=== PATIENT | male | born 1940 | race Caucasian/White ===

== ENCOUNTER 2022-05-30 21:15 | Inpatient (IN) | payer MEDICARE, MEDICAID ==
[2022-05-31 01:09] VITALS: BMI 20.8
[2022-05-31] MEDS ORDERED: Dextrose 5% in Water 1,000 ML IV PRN (01:39)
[2022-05-31] MEDS ORDERED: hydrALAZINE 20 MG/ML VIAL SLOW IVP PRN (01:39)
[2022-05-31] MEDS ORDERED: Morphine 2 MG/ML VIAL SLOW IVP PRN (01:39)
[2022-05-31] MEDS ORDERED: Ondansetron PF 4 MG/2 ML Vial IVP PRN (01:39)
[2022-05-31] MEDS ORDERED: Dextrose 50% Abboject 50 ML SYRINGE SLOW IVP PRN (01:39)
[2022-05-31] MEDS ORDERED: Cyclobenzaprine 10 MG TAB PO PRN (01:43)
[2022-05-31] MEDS ORDERED: traMADol HCl 50 MG TAB PO PRN ×2 (01:43)
[2022-05-31 02:23] LABS: SARS-CoV-2 NAA Rapid Test Not Detected (NotDetected)
[2022-05-31] MEDS: Acetaminophen 500 MG TAB PO SCH ×3 (05:30→18:17)
[2022-05-31] MEDS ORDERED: CEFAZOLIN 2 GM in Sodium Chloride 0.9% 100 ML IVPB SCH (07:00)
[2022-05-31] MEDS: Polyethylene Glycol 3350 17 GM Packet PO SCH (09:54)
[2022-05-31] MEDS: Senokot S 8.6-50 MG TAB PO SCH ×2 (09:54→22:48)
[2022-05-31] MEDS: Famotidine 20 MG TAB PO SCH ×2 (10:20→22:48)
[2022-05-31] MEDS ORDERED: Sodium Chloride 0.9% 1,000 ML IV SCH (16:15)
[2022-05-31] MEDS ORDERED: fentaNYL Citrate/PF 100 MCG/2 ML SYRINGE ONE (16:36)
[2022-05-31] MEDS ORDERED: Norepinephrine 4 MG/4 ML VIAL ONE (16:37)
[2022-05-31] MEDS ORDERED: Lidocaine 1% MPF 2 ML VIAL ONE (17:14)
[2022-05-31] MEDS ORDERED: Neostigmine Methylsulfate 3 MG/3 ML SYRINGE ONE (17:14)
[2022-05-31] MEDS ORDERED: Ondansetron PF 4 MG/2 ML Vial ONE (17:14)
[2022-05-31] MEDS ORDERED: Dexamethasone 20 MG/5 ML VIAL ONE (17:14)
[2022-05-31] MEDS ORDERED: Glycopyrrolate 0.2 MG/ML 5 ML SYRINGE ONE (17:14)
[2022-05-31] MEDS ORDERED: ePHEDrine 50 MG/ML VIAL ONE (17:14)
[2022-05-31] MEDS ORDERED: Rocuronium Bromide 10 MG/ML (10ML VIAL) ONE (17:14)
[2022-05-31] MEDS ORDERED: Ondansetron HCl/PF 4 MG/2 ML Vial IVP PRN (18:35)
[2022-05-31] MEDS ORDERED: Promethazine HCl 25 MG/ML VIAL IVPB PRN (18:35)
[2022-05-31] MEDS ORDERED: Promethazine HCl 25 MG/ML VIAL IM PRN (18:35)
[2022-05-31] MEDS ORDERED: Fentanyl 100 MCG/2 ML VIAL ONE (18:47)
[2022-06-01] MEDS: CEFAZOLIN 2 GM in Sodium Chloride 0.9% 100 ML IVPB SCH ×2 (02:17→10:03)
[2022-06-01] MEDS: Acetaminophen 500 MG TAB PO SCH ×5 (02:19→22:55)
[2022-06-01 05:50] LABS: Anion Gap 10 mmol/L (10-20); BUN (Urea Nitrogen) 17 mg/dL (8.4-25.7); Calc. Creatinine Clearance 53 mL/min (70-130); Calcium 8.9 mg/dL (7.8-10.44); Carbon Dioxide 26 mmol/L (23-31); Chloride 105 mmol/L (98-107); Estimated GFR 73; Glucose 141 mg/dL (83-110); Magnesium 1.7 mg/dL (1.6-2.6); Phosphorus 2.5 mg/dL (2.3-4.7); Potassium 4.1 mmol/L (3.5-5.1); Sodium 137 mmol/L (136-145)
[2022-06-01 06:18] LABS: Band 13 % (5-11); Hemoglobin 12.7 g/dL (14.0-18.0); Lymphocytes 10 % (21-51); MDiff Complete? YES; Mean Corpuscular HGB CONC 32.4 g/dL (32.0-36.0); Mean Corpuscular Hemoglobin 32.6 pg (27.0-31.0); Mean Platelet Volume 10.5 fL (7.4-10.4); Monocytes 6 % (0-10); Neutrophil 71 % (42-75); Platelet Count 214 thou/uL (130-400); RBC Distribution Width 12.3 % (11.5-14.5); White Blood Cell (WBC) Count 21.7 thou/uL (4.8-10.8)
[2022-06-01] MEDS ORDERED: PHOS-NAK 1 PKT PACK PO SCH (08:00)
[2022-06-01] MEDS ORDERED: Magnesium 2 GM/50 ML(in water) 2 GM in Premix Bag 1 BAG IVPB SCH (08:00)
[2022-06-01] MEDS: Senokot S 8.6-50 MG TAB PO SCH ×2 (10:03→22:55)
[2022-06-01] MEDS: Polyethylene Glycol 3350 17 GM Packet PO SCH (10:04)
[2022-06-01] MEDS: Famotidine 20 MG TAB PO SCH ×2 (10:04→22:56)
[2022-06-01] MEDS: Aspirin 81 mg Enteric Coated Tablet PO SCH ×2 (10:04→22:56)
[2022-06-02 06:20] LABS: #Eosinphils 0.8 thou/uL (0.0-0.7); #Lymphocytes 5.8 thou/uL (1.20-3.40); #Monocytes 3.3 thou/uL (0.11-0.59); #Neutrophils 15.4 thou/uL (1.40-6.50); %Basophils 0.1 % (0.0-1.0); %Eosinophils 3.1 % (0.0-10.0); %Lymphocytes 22.8 % (21.0-51.0); %Monocytes 13.1 % (0.0-10.0); %Neutrophils 60.9 % (42.0-75.0); Hemoglobin 13.1 g/dL (14.0-18.0); Mean Corpuscular HGB CONC 32.6 g/dL (32.0-36.0); Mean Corpuscular Hemoglobin 32.6 pg (27.0-31.0); Mean Corpuscular Volume 99.9 fL (78.0-98.0); Platelet Count 240 thou/uL (130-400); RBC Distribution Width 12.5 % (11.5-14.5); Red Blood Cell (RBC) Count 4.02 mill/uL (4.70-6.10); White Blood Cell (WBC) Count 25.3 thou/uL (4.8-10.8)
[2022-06-02] MEDS: Acetaminophen 500 MG TAB PO SCH ×4 (06:22→23:55)
[2022-06-02 06:51] LABS: Anion Gap 20 mmol/L (10-20); BUN (Urea Nitrogen) 22 mg/dL (8.4-25.7); Calc. Creatinine Clearance 44 mL/min (70-130); Calcium 9.6 mg/dL (7.8-10.44); Carbon Dioxide 20 mmol/L (23-31); Chloride 104 mmol/L (98-107); Estimated GFR 59; Glucose 96 mg/dL (83-110); Magnesium 2.3 mg/dL (1.6-2.6); Phosphorus 2.5 mg/dL (2.3-4.7); Potassium 3.3 mmol/L (3.5-5.1); Sodium 141 mmol/L (136-145)
[2022-06-02] MEDS: Famotidine 20 MG TAB PO SCH ×2 (10:36→21:39)
[2022-06-02] MEDS: Aspirin 81 mg Enteric Coated Tablet PO SCH ×2 (10:36→21:39)
[2022-06-02] MEDS: Senokot S 8.6-50 MG TAB PO SCH ×2 (10:36→23:56)
[2022-06-02] MEDS: Polyethylene Glycol 3350 17 GM Packet PO SCH (10:37)
[2022-06-02] MEDS: BRIMONIDINE TARTRATE EA EYE SCH ×2 (10:37→21:39)
[2022-06-02] MEDS: TIMOLOL EA EYE SCH ×2 (10:37→21:39)
[2022-06-02] MEDS: BRINZOLAMIDE 1% EA EYE SCH ×2 (10:38→21:40)
[2022-06-03 06:05] LABS: #Basophils 0.1 thou/uL (0.0-0.2); #Eosinphils 1.6 thou/uL (0.0-0.7); #Lymphocytes 2.8 thou/uL (1.20-3.40); #Monocytes 1.6 thou/uL (0.11-0.59); #Neutrophils 8.7 thou/uL (1.40-6.50); %Basophils 0.4 % (0.0-1.0); %Lymphocytes 19.2 % (21.0-51.0); %Monocytes 10.9 % (0.0-10.0); %Neutrophils 58.6 % (42.0-75.0); Hemoglobin 11.8 g/dL (14.0-18.0); Mean Corpuscular HGB CONC 32.3 g/dL (32.0-36.0); Mean Corpuscular Hemoglobin 32.6 pg (27.0-31.0); Mean Platelet Volume 10.5 fL (7.4-10.4); Platelet Count 230 thou/uL (130-400); RBC Distribution Width 12.4 % (11.5-14.5); Red Blood Cell (RBC) Count 3.63 mill/uL (4.70-6.10); White Blood Cell (WBC) Count 14.8 thou/uL (4.8-10.8)
[2022-06-03] MEDS: Acetaminophen 500 MG TAB PO SCH ×3 (06:24→17:36)
[2022-06-03 06:31] LABS: Anion Gap 13 mmol/L (10-20); BUN (Urea Nitrogen) 27 mg/dL (8.4-25.7); Calc. Creatinine Clearance 57 mL/min (70-130); Calcium 8.8 mg/dL (7.8-10.44); Carbon Dioxide 25 mmol/L (23-31); Chloride 106 mmol/L (98-107); Estimated GFR 80; Glucose 90 mg/dL (83-110); Magnesium 2.1 mg/dL (1.6-2.6); Phosphorus 2.7 mg/dL (2.3-4.7); Potassium 3.4 mmol/L (3.5-5.1); Sodium 141 mmol/L (136-145)
[2022-06-03] MEDS: Aspirin 81 mg Enteric Coated Tablet PO SCH ×2 (10:07→20:11)
[2022-06-03] MEDS: Famotidine 20 MG TAB PO SCH ×2 (10:08→20:11)
[2022-06-03] MEDS: BRINZOLAMIDE 1% EA EYE SCH ×2 (10:10→20:11)
[2022-06-03] MEDS: BRIMONIDINE TARTRATE EA EYE SCH ×2 (10:11→20:10)
[2022-06-03] MEDS: TIMOLOL EA EYE SCH ×2 (10:11→20:10)
[2022-06-03] MEDS: Senokot S 8.6-50 MG TAB PO SCH ×2 (11:20→20:11)
[2022-06-03] MEDS: Polyethylene Glycol 3350 17 GM Packet PO SCH (11:20)
[2022-06-04] MEDS: Acetaminophen 500 MG TAB PO SCH ×4 (00:24→18:26)
[2022-06-04] MEDS: BRIMONIDINE TARTRATE EA EYE SCH ×2 (09:15→20:39)
[2022-06-04] MEDS: TIMOLOL EA EYE SCH ×2 (09:15→20:39)
[2022-06-04] MEDS: BRINZOLAMIDE 1% EA EYE SCH ×2 (09:17→20:39)
[2022-06-04] MEDS: Polyethylene Glycol 3350 17 GM Packet PO SCH (09:17)
[2022-06-04] MEDS: Aspirin 81 mg Enteric Coated Tablet PO SCH ×2 (09:17→20:38)
[2022-06-04] MEDS: Senokot S 8.6-50 MG TAB PO SCH ×2 (09:18→20:38)
[2022-06-04 09:36] LABS: Anion Gap 17 mmol/L (10-20); BUN (Urea Nitrogen) 23 mg/dL (8.4-25.7); Calc. Creatinine Clearance 65 mL/min (70-130); Calcium 8.4 mg/dL (7.8-10.44); Carbon Dioxide 21 mmol/L (23-31); Chloride 106 mmol/L (98-107); Estimated GFR 87; Glucose 86 mg/dL (83-110); Magnesium 1.9 mg/dL (1.6-2.6); Phosphorus 2.9 mg/dL (2.3-4.7); Potassium 3.8 mmol/L (3.5-5.1); Sodium 140 mmol/L (136-145)
[2022-06-04 09:49] LABS: #Basophils 0.1 thou/uL (0.0-0.2); #Eosinphils 1.7 thou/uL (0.0-0.7); #Monocytes 1.1 thou/uL (0.11-0.59); #Neutrophils 8.2 thou/uL (1.40-6.50); %Basophils 0.6 % (0.0-1.0); %Eosinophils 11.8 % (0.0-10.0); %Lymphocytes 21.5 % (21.0-51.0); %Monocytes 8.1 % (0.0-10.0); %Neutrophils 58.1 % (42.0-75.0); Hemoglobin 12.1 g/dL (14.0-18.0); Mean Corpuscular HGB CONC 31.7 g/dL (32.0-36.0); Mean Corpuscular Hemoglobin 31.9 pg (27.0-31.0); Mean Platelet Volume 10.8 fL (7.4-10.4); Platelet Count 295 thou/uL (130-400); RBC Distribution Width 12.3 % (11.5-14.5); White Blood Cell (WBC) Count 14.1 thou/uL (4.8-10.8)
[2022-06-05] MEDS: Acetaminophen 500 MG TAB PO SCH ×4 (02:07→17:41)
[2022-06-05] MEDS: Senokot S 8.6-50 MG TAB PO SCH ×2 (08:48→21:15)
[2022-06-05] MEDS: Aspirin 81 mg Enteric Coated Tablet PO SCH ×2 (08:48→21:15)
[2022-06-05] MEDS: Polyethylene Glycol 3350 17 GM Packet PO SCH (08:48)
[2022-06-05] MEDS: BRIMONIDINE TARTRATE EA EYE SCH ×2 (08:49→21:15)
[2022-06-05] MEDS: TIMOLOL EA EYE SCH ×2 (08:49→21:15)
[2022-06-05] MEDS ORDERED: Famotidine 20 MG TAB PO SCH (09:00)
[2022-06-05] MEDS: BRINZOLAMIDE 1% EA EYE SCH ×2 (09:36→21:15)
[2022-06-05] MEDS: Melatonin 3 MG TAB PO SCH (21:15)
[2022-06-06] MEDS: Acetaminophen 500 MG TAB PO SCH ×5 (01:06→23:42)
[2022-06-06] MEDS: BRIMONIDINE TARTRATE EA EYE SCH ×2 (09:03→21:32)
[2022-06-06] MEDS: TIMOLOL EA EYE SCH ×2 (09:03→21:32)
[2022-06-06] MEDS: BRINZOLAMIDE 1% EA EYE SCH ×2 (09:52→21:32)
[2022-06-06] MEDS: Aspirin 81 mg Enteric Coated Tablet PO SCH ×2 (09:53→21:31)
[2022-06-06] MEDS: Polyethylene Glycol 3350 17 GM Packet PO SCH (09:54)
[2022-06-06] MEDS: Senokot S 8.6-50 MG TAB PO SCH ×2 (09:54→21:33)
[2022-06-06] MEDS: Famotidine 20 MG TAB PO SCH ×2 (09:54→21:31)
[2022-06-06] MEDS: Melatonin 3 MG TAB PO SCH (21:32)
[2022-06-07] MEDS: Acetaminophen 500 MG TAB PO SCH ×2 (05:54→12:58)
[2022-06-07] MEDS: Famotidine 20 MG TAB PO SCH (10:00)
[2022-06-07] MEDS: Aspirin 81 mg Enteric Coated Tablet PO SCH (10:00)
[2022-06-07] MEDS: Senokot S 8.6-50 MG TAB PO SCH (10:01)
[2022-06-07] MEDS: TIMOLOL EA EYE SCH (10:02)
[2022-06-07] MEDS: BRIMONIDINE TARTRATE EA EYE SCH (10:02)
[2022-06-07] MEDS: BRINZOLAMIDE 1% EA EYE SCH (10:02)
[2022-06-07] MEDS: Polyethylene Glycol 3350 17 GM Packet PO SCH (10:03)
[2022-06-07 12:42] VITALS: BP 155/91; TEMP 97.8
== END 2022-06-07 14:00 | disposition swing bed (61) | DRG 521 ==
LOC: SJJU 05-31 00:59 → SURG A 06-01 19:42
PROVIDERS: ADMIT Surgery; ATTEND Surgery
PROC: 0SRB0J9 Replacement of Left Hip Joint with Synthetic Substitute, Cemented, Open Approach (ICD-10-PCS; principal; 2022-05-31)
DX: S72.002A Fracture of unspecified part of neck of left femur, initial encounter for closed fracture (principal); S72.111A Displaced fracture of greater trochanter of right femur, initial encounter for closed fracture; E44.0 Moderate protein-calorie malnutrition; D62 Acute posthemorrhagic anemia; Z20.822 Contact with and (suspected) exposure to COVID-19; W18.30XA Fall on same level, unspecified, initial encounter; I10 Essential (primary) hypertension; H40.9 Unspecified glaucoma; H54.7 Unspecified visual loss; E83.39 Other disorders of phosphorus metabolism; E87.6 Hypokalemia; Z90.49 Acquired absence of other specified parts of digestive tract; Z98.49 Cataract extraction status, unspecified eye; Z79.82 Long term (current) use of aspirin; Z79.899 Other long term (current) drug therapy
CPT/HCPCS: 36415; 72170; 80048; 83735; 84100; 85025; C1713; C1776; J0360; J0690; J1100; J2405; J3010; J3475; J3490; J7030; U0002; U0003; U0005

== ENCOUNTER 2022-07-20 17:10 | Inpatient (IN) | payer OTHER, MEDICARE, MEDICAID ==
[2022-07-20] MEDS ORDERED: hydrALAZINE 20 MG/ML VIAL SLOW IVP PRN (20:18)
[2022-07-20] MEDS ORDERED: Ondansetron PF 4 MG/2 ML Vial IVP PRN (20:18)
[2022-07-20] MEDS ORDERED: Morphine 2 MG/ML VIAL SLOW IVP PRN (20:18)
[2022-07-20] MEDS ORDERED: Ondansetron ODT 4 MG TAB PO PRN (20:18)
[2022-07-20] MEDS ORDERED: TETANUS, DIPHTHERIA TOX,ADULT (TDVAX) 0.5 ML VIAL IM ONE (20:18)
[2022-07-21] MEDS: Sodium Chloride 0.9% 1,000 ML IV SCH ×2 (00:09→10:33)
[2022-07-21] MEDS: Famotidine/PF 20 mg/2ml Vial SLOW IVP SCH ×3 (00:16→21:41)
[2022-07-21] MEDS: Acetaminophen 500 MG TAB PO SCH ×2 (00:18→02:45)
[2022-07-21 03:22] VITALS: BMI 21.7
[2022-07-21 05:56] LABS: #Basophils 0.1 thou/uL (0.0-0.2); #Eosinphils 0.5 thou/uL (0.0-0.7); #Lymphocytes 3.3 thou/uL (1.20-3.40); #Monocytes 0.9 thou/uL (0.11-0.59); %Basophils 1.3 % (0.0-1.0); %Eosinophils 5.2 % (0.0-10.0); %Lymphocytes 37.4 % (21.0-51.0); %Neutrophils 46.1 % (42.0-75.0); Hemoglobin 14.4 g/dL (14.0-18.0); Mean Corpuscular Hemoglobin 33.3 pg (27.0-31.0); Platelet Count 265 thou/uL (130-400); RBC Distribution Width 13.2 % (11.5-14.5); Red Blood Cell (RBC) Count 4.33 mill/uL (4.70-6.10); White Blood Cell (WBC) Count 8.7 thou/uL (4.8-10.8)
[2022-07-21 06:09] LABS: PTT 31.4 sec (22.9-36.1); Prothrombin Time 13.5 sec (12.0-14.7)
[2022-07-21 06:17] LABS: Phosphorus 3.4 mg/dL (2.3-4.7)
[2022-07-21 06:18] LABS: Anion Gap 14 mmol/L (10-20); BUN (Urea Nitrogen) 23 mg/dL (8.4-25.7); Calc. Creatinine Clearance 56 mL/min (70-130); Calcium 8.9 mg/dL (7.8-10.44); Carbon Dioxide 22 mmol/L (23-31); Chloride 106 mmol/L (98-107); Estimated GFR 87; Glucose 68 mg/dL (83-110); Magnesium 1.9 mg/dL (1.6-2.6); Potassium 3.3 mmol/L (3.5-5.1); Sodium 139 mmol/L (136-145)
[2022-07-21] MEDS ORDERED: fentaNYL Citrate/PF 100 MCG/2 ML SYRINGE ONE ×2 (07:31→08:52)
[2022-07-21] MEDS ORDERED: Potassium Chloride 20 MEQ TAB PO SCH (07:45)
[2022-07-21] MEDS ORDERED: Magnesium 2 GM/50 ML(in water) 2 GM in Premix Bag 1 BAG IVPB SCH (07:45)
[2022-07-21] MEDS ORDERED: Rocuronium Bromide 10 MG/ML (10ML VIAL) ONE (08:00)
[2022-07-21] MEDS ORDERED: ePHEDrine 50 MG/ML VIAL ONE (08:00)
[2022-07-21] MEDS ORDERED: Dexamethasone 20 MG/5 ML VIAL ONE (08:00)
[2022-07-21] MEDS ORDERED: Ondansetron PF 4 MG/2 ML Vial ONE (08:00)
[2022-07-21] MEDS ORDERED: PHENYLEPHRINE-NS 100 MCG/ML 10 ML SYRINGE ONE (08:00)
[2022-07-21] MEDS ORDERED: Sodium Chloride 0.9% 100 ML ONE (08:03)
[2022-07-21] MEDS ORDERED: CEFAZOLIN 2 GM VIAL ONE (08:03)
[2022-07-21] MEDS ORDERED: Ondansetron HCl/PF 4 MG/2 ML Vial IVP PRN (08:05)
[2022-07-21] MEDS ORDERED: Promethazine HCl 25 MG/ML VIAL IVPB PRN (08:05)
[2022-07-21] MEDS ORDERED: Promethazine HCl 25 MG/ML VIAL IM PRN (08:05)
[2022-07-21] MEDS ORDERED: EPINEPHrine 1 MG/ML AMP ONE (09:27)
[2022-07-21] MEDS ORDERED: Bupivacaine PF 0.5% 30 ML VIAL ONE ×2 (09:27→09:29)
[2022-07-21] MEDS ORDERED: SUGAMMADEX SODIUM 200 MG/2 ML VIAL ONE (09:39)
[2022-07-21] MEDS ORDERED: Fentanyl 100 MCG/2 ML VIAL ONE ×2 (10:08→10:53)
[2022-07-21] MEDS: Acetaminophen 325 MG TAB PO SCH ×3 (10:33→21:30)
[2022-07-21] MEDS: Acetaminophen/Codeine 30-300mg Tablet PO SCH ×3 (10:33→21:31)
[2022-07-21] MEDS ORDERED: HYDROmorphone 0.5 MG/0.5 ML SYRINGE ONE (10:36)
[2022-07-21] MEDS: CEFAZOLIN 2 GM in Sodium Chloride 0.9% 100 ML IVPB SCH (15:05)
[2022-07-22] MEDS: CEFAZOLIN 2 GM in Sodium Chloride 0.9% 100 ML IVPB SCH (00:19)
[2022-07-22] MEDS: Acetaminophen 325 MG TAB PO SCH ×4 (03:31→20:53)
[2022-07-22] MEDS: Acetaminophen/Codeine 30-300mg Tablet PO SCH ×4 (03:32→20:52)
[2022-07-22 06:48] LABS: #Lymphocytes 1.9 thou/uL (1.20-3.40); #Monocytes 1.9 thou/uL (0.11-0.59); #Neutrophils 12.4 thou/uL (1.40-6.50); %Basophils 0.1 % (0.0-1.0); %Eosinophils 0.1 % (0.0-10.0); %Lymphocytes 11.8 % (21.0-51.0); %Monocytes 11.9 % (0.0-10.0); %Neutrophils 76.1 % (42.0-75.0); Hemoglobin 12.1 g/dL (14.0-18.0); MDiff Complete? YES; Macrocytosis SLIGHT = 6-15 cells (100X) (0-5/hpf); Mean Corpuscular HGB CONC 30.6 g/dL (32.0-36.0); Mean Corpuscular Hemoglobin 32.6 pg (27.0-31.0); Mean Platelet Volume 10.6 fL (7.4-10.4); Platelet Count 229 thou/uL (130-400); Platelet Morphology Comment Appears Adequate; RBC Distribution Width 13.2 % (11.5-14.5); Red Blood Cell (RBC) Count 3.71 mill/uL (4.70-6.10); White Blood Cell (WBC) Count 16.3 thou/uL (4.8-10.8)
[2022-07-22 06:49] LABS: Anion Gap 14 mmol/L (10-20); BUN (Urea Nitrogen) 26 mg/dL (8.4-25.7); Calc. Creatinine Clearance 40 mL/min (70-130); Calcium 8.6 mg/dL (7.8-10.44); Carbon Dioxide 19 mmol/L (23-31); Chloride 109 mmol/L (98-107); Estimated GFR 62; Glucose 161 mg/dL (83-110); Magnesium 2.2 mg/dL (1.6-2.6); Phosphorus 3.1 mg/dL (2.3-4.7); Potassium 4.5 mmol/L (3.5-5.1); Sodium 137 mmol/L (136-145)
[2022-07-22] MEDS: Famotidine/PF 20 mg/2ml Vial SLOW IVP SCH ×2 (09:37→20:50)
[2022-07-22] MEDS: Aspirin 81 mg Enteric Coated Tablet PO SCH ×2 (09:37→20:51)
[2022-07-22] MEDS: Sodium Chloride 0.9% 1,000 ML IV SCH ×2 (09:39→20:51)
[2022-07-22 13:59] LABS: Bacteria/HPF None Seen HPF (None Seen); Bilirubin Negative (Negative); Blood, Urine Negative (Negative); Clarity Clear (Clear); Glucose, Urine (Dipstick) Normal (Negative); Ketone, Urine 10 mg/dL (Negative); Leukocyte Negative Leu/uL (Negative); Mucous/LPF Rare LPF (<2+); Nitrite Negative (Negative); Protein, Urine (Dipstick) 10 mg/dL (Neg-Trace); RBC/HPF 0-3 HPF (0-3); Specific Gravity, Urine 1.036 (1.002-1.036); Squamous Epithelial 0-3 HPF (0-3); Urobilinogen Normal mg/dL (Less than 2); WBC/HPF 0-3 HPF (0-3)
[2022-07-22 14:00] LABS: Urine Culture Reflex No No
[2022-07-22] MEDS: Brimonidine Tartrate 0.2% Ophth Soln 5 ml Bottle EA EYE SCH (20:53)
[2022-07-22] MEDS: Brinzolamide 1% Ophth SUSP 10 ml Bottle EA EYE SCH (20:55)
[2022-07-23] MEDS: Acetaminophen 325 MG TAB PO SCH ×4 (02:24→21:00)
[2022-07-23] MEDS: Acetaminophen/Codeine 30-300mg Tablet PO SCH ×4 (02:25→21:01)
[2022-07-23 06:01] LABS: #Eosinphils 0.1 thou/uL (0.0-0.7); #Lymphocytes 2.2 thou/uL (1.20-3.40); #Monocytes 1.3 thou/uL (0.11-0.59); #Neutrophils 7.5 thou/uL (1.40-6.50); %Basophils 0.1 % (0.0-1.0); %Eosinophils 0.7 % (0.0-10.0); %Lymphocytes 20.2 % (21.0-51.0); %Monocytes 11.4 % (0.0-10.0); %Neutrophils 67.6 % (42.0-75.0); Hemoglobin 10.3 g/dL (14.0-18.0); Mean Corpuscular HGB CONC 31.4 g/dL (32.0-36.0); Mean Corpuscular Hemoglobin 32.5 pg (27.0-31.0); Mean Platelet Volume 10.8 fL (7.4-10.4); Platelet Count 194 thou/uL (130-400); RBC Distribution Width 13.2 % (11.5-14.5); Red Blood Cell (RBC) Count 3.17 mill/uL (4.70-6.10); White Blood Cell (WBC) Count 11.1 thou/uL (4.8-10.8)
[2022-07-23 06:36] LABS: Anion Gap 9 mmol/L (10-20); BUN (Urea Nitrogen) 22 mg/dL (8.4-25.7); Calc. Creatinine Clearance 53 mL/min (70-130); Calcium 8.3 mg/dL (7.8-10.44); Carbon Dioxide 25 mmol/L (23-31); Chloride 110 mmol/L (98-107); Estimated GFR 85; Glucose 111 mg/dL (83-110); Magnesium 2.1 mg/dL (1.6-2.6); Phosphorus 2.4 mg/dL (2.3-4.7); Sodium 140 mmol/L (136-145)
[2022-07-23] MEDS: Brimonidine Tartrate 0.2% Ophth Soln 5 ml Bottle EA EYE SCH ×2 (08:25→21:02)
[2022-07-23] MEDS: Brinzolamide 1% Ophth SUSP 10 ml Bottle EA EYE SCH ×2 (08:25→21:02)
[2022-07-23] MEDS: Aspirin 81 mg Enteric Coated Tablet PO SCH ×2 (08:25→21:02)
[2022-07-23] MEDS: Famotidine/PF 20 mg/2ml Vial SLOW IVP SCH (08:25)
[2022-07-24] MEDS: Acetaminophen 325 MG TAB PO SCH ×4 (02:15→20:01)
[2022-07-24] MEDS: Acetaminophen/Codeine 30-300mg Tablet PO SCH ×4 (02:15→20:02)
[2022-07-24] MEDS: Brimonidine Tartrate 0.2% Ophth Soln 5 ml Bottle EA EYE SCH ×2 (08:42→20:02)
[2022-07-24] MEDS: Aspirin 81 mg Enteric Coated Tablet PO SCH ×2 (08:42→20:01)
[2022-07-24] MEDS: Brinzolamide 1% Ophth SUSP 10 ml Bottle EA EYE SCH ×2 (08:42→20:02)
[2022-07-24] MEDS ORDERED: FLU VACC QS2022-23(65YR UP)/PF 240 MCG/0.7 ML SYRINGE IM ONE (09:00)
[2022-07-25] MEDS: Acetaminophen/Codeine 30-300mg Tablet PO SCH ×3 (02:03→13:25)
[2022-07-25] MEDS: Acetaminophen 325 MG TAB PO SCH ×3 (02:03→13:25)
[2022-07-25] MEDS: Brimonidine Tartrate 0.2% Ophth Soln 5 ml Bottle EA EYE SCH (08:21)
[2022-07-25] MEDS: Brinzolamide 1% Ophth SUSP 10 ml Bottle EA EYE SCH (08:21)
[2022-07-25] MEDS: Aspirin 81 mg Enteric Coated Tablet PO SCH (08:21)
[2022-07-25 12:28] VITALS: BP 120/77; TEMP 97.5
== END 2022-07-25 16:15 | disposition swing bed (61) | DRG 481 ==
LOC: 2NO 17:10 → SURG B 19:46
PROVIDERS: ADMIT Surgery; ATTEND Surgery
PROC: 0QS704Z Reposition Left Upper Femur with Internal Fixation Device, Open Approach (ICD-10-PCS; principal; 2022-07-21)
DX: S72.302A Unspecified fracture of shaft of left femur, initial encounter for closed fracture (principal); M97.02XA Periprosthetic fracture around internal prosthetic left hip joint, initial encounter; V58.4XXA Person boarding or alighting a pick-up truck or van injured in noncollision transport accident, initial encounter; I10 Essential (primary) hypertension; H40.9 Unspecified glaucoma; Z79.82 Long term (current) use of aspirin; Z20.822 Contact with and (suspected) exposure to COVID-19; H54.7 Unspecified visual loss
CPT/HCPCS: 36415; 76000; 80048; 81001; 82533; 83735; 83880; 84100; 85025; 85610; 85730; 86850; 86900; 86901; C1713; C1776; J0171; J0690; J1100; J1170; J2405; J3010; J3475; J3490; J7050; S0020; S0028

== ENCOUNTER 2023-11-04 14:12 | Inpatient (IN) | payer MEDICARE, MEDICAID ==
[2023-11-04] MEDS ORDERED: Glucagon 1 MG/ML KIT IM PRN (15:23)
[2023-11-04] MEDS ORDERED: Ondansetron PF 4 MG/2 ML Vial IVP PRN (15:23)
[2023-11-04] MEDS ORDERED: Ondansetron ODT 4 MG TAB PO PRN (15:23)
[2023-11-04] MEDS ORDERED: HYDROcodone/Acetaminophen 5/325 mg Tablet PO PRN (15:23)
[2023-11-04] MEDS ORDERED: Morphine 2 MG/ML VIAL SLOW IVP PRN (15:23)
[2023-11-04] MEDS ORDERED: Dextrose 5% in Water 1,000 ML IV PRN (15:23)
[2023-11-04] MEDS ORDERED: TETANUS, DIPHTHERIA TOX,ADULT (TDVAX) 0.5 ML VIAL IM ONE (15:23)
[2023-11-04] MEDS ORDERED: Dextrose 50% Abboject 50 ML SYRINGE SLOW IVP PRN (15:23)
[2023-11-04 16:32] VITALS: BMI 24.0
[2023-11-04] MEDS: Sodium Chloride 0.9% 1,000 ML IV SCH ×2 (16:50→23:31)
[2023-11-04] MEDS: Acetaminophen 325 MG TAB PO PRN (23:30)
[2023-11-05 05:02] LABS: Hematocrit 38.4 % (42.0-52.0); Hemoglobin 12.4 g/dL (14.0-18.0); Manual Diff?? YES; Mean Corpuscular HGB CONC 32.3 g/dL (32.0-36.0); Mean Corpuscular Hemoglobin 31.8 pg (27.0-31.0); Mean Corpuscular Volume 98.5 fl (78.0-98.0); Mean Platelet Volume 12.8 fL (7.4-10.4); Platelet Count 254 10x3/uL (130-400); RBC Distribution Width 14.3 % (11.5-14.5); White Blood Cell (WBC) Count 11.3 10x3/uL (4.8-10.8)
[2023-11-05 05:06] LABS: Delete Auto Diff?? YES
[2023-11-05 05:25] LABS: ALT (SGPT) 17 U/L (8-55); AST (SGOT) 34 U/L (5-34); Albumin 3.3 g/dL (3.4-4.8); Alkaline Phosphatase 76 U/L (40-110); Anion Gap 10 mmol/L (10-20); BUN (Urea Nitrogen) 25 mg/dL (8.4-25.7); Bilirubin, Total 0.9 mg/dL (0.2-1.2); Calc. Creatinine Clearance 59 mL/min (70-130); Calcium 8.4 mg/dL (7.8-10.44); Carbon Dioxide 22 mmol/L (23-31); Chloride 111 mmol/L (98-107); Estimated GFR 71; Globulin 2.7 g/dL (2.4-3.5); Glucose 92 mg/dL (83-110); Potassium 3.4 mmol/L (3.5-5.1); Sodium 140 mmol/L (136-145)
[2023-11-05 05:59] LABS: CellaVision Operator ID lab.abc; Eosinophils 3 % (0-10); Large Platelets 12.9 % (0-5); Lymphocytes 22 % (21-51); Monocytes 10 % (0-10); Myelocyte 2 % (0-0); Neutrophil 61 % (42-75); Platelet Adequacy Comment Platelets Normal; Polychromasia SLIGHT = 2-3 cells HPF (0-2); RBC Morphology Within Normal Limits; Reactive Lymphocytes 2 % (0-10); Smudge Cells 8.6 %; Total Cell Count 116
[2023-11-05] MEDS ORDERED: Sodium Chloride 0.9% 1,000 ML IV SCH (06:45)
[2023-11-05] MEDS ORDERED: Potassium Chloride 20 MEQ TAB PO SCH (07:30)
[2023-11-05] MEDS: Enoxaparin 40 MG (0.4 mL) SYRINGE SC SCH (08:11)
[2023-11-05] MEDS: Acetaminophen 325 MG TAB PO PRN (16:50)
[2023-11-06 01:12] LABS: Hematocrit 44.9 % (42.0-52.0); Hemoglobin 14.7 g/dL (14.0-18.0); Manual Diff?? YES; Mean Corpuscular HGB CONC 32.7 g/dL (32.0-36.0); Mean Corpuscular Hemoglobin 31.7 pg (27.0-31.0); Mean Corpuscular Volume 96.8 fl (78.0-98.0); Mean Platelet Volume 12.5 fL (7.4-10.4); Platelet Count 279 10x3/uL (130-400); RBC Distribution Width 14.2 % (11.5-14.5); Red Blood Cell (RBC) Count 4.64 mill/uL (4.70-6.10); White Blood Cell (WBC) Count 14.7 10x3/uL (4.8-10.8)
[2023-11-06 01:15] LABS: Delete Auto Diff?? YES
[2023-11-06 01:32] LABS: CellaVision Operator ID LAB.KB; Lymphocytes 11 % (21-51); Monocytes 4 % (0-10); Neutrophil 81 % (42-75); Platelet Adequacy Comment Platelets Normal; Polychromasia SLIGHT = 2-3 cells HPF (0-2); Reactive Lymphocytes 3 % (0-10); Total Cell Count 100
[2023-11-06] MEDS: Pantoprazole 80 MG, Admixture Fee 1 EACH in Sodium Chloride 0.9% 100 ML IVPB SCH ×2 (01:52→12:04)
[2023-11-06 04:56] LABS: Hematocrit 41.3 % (42.0-52.0); Hemoglobin 13.5 g/dL (14.0-18.0); Manual Diff?? YES; Mean Corpuscular HGB CONC 32.7 g/dL (32.0-36.0); Mean Corpuscular Hemoglobin 31.9 pg (27.0-31.0); Mean Corpuscular Volume 97.6 fl (78.0-98.0); Mean Platelet Volume 12.4 fL (7.4-10.4); Platelet Count 270 10x3/uL (130-400); RBC Distribution Width 14.2 % (11.5-14.5); Red Blood Cell (RBC) Count 4.23 mill/uL (4.70-6.10); White Blood Cell (WBC) Count 15.3 10x3/uL (4.8-10.8)
[2023-11-06 05:12] LABS: Delete Auto Diff?? YES
[2023-11-06 05:19] LABS: Anion Gap 13 mmol/L (10-20); BUN (Urea Nitrogen) 19 mg/dL (8.4-25.7); CK (CPK) 498 U/L (30-200); Calc. Creatinine Clearance 65 mL/min (70-130); Calcium 8.8 mg/dL (7.8-10.44); Carbon Dioxide 22 mmol/L (23-31); Chloride 110 mmol/L (98-107); Estimated GFR 80; Glucose 89 mg/dL (83-110); Potassium 4.1 mmol/L (3.5-5.1); Sodium 141 mmol/L (136-145)
[2023-11-06 05:47] LABS: Band 5 % (5-11); CellaVision Operator ID LAB.GE; Eosinophils 1 % (0-10); Large Platelets 7.8 % (0-5); Lymphocytes 11 % (21-51); Monocytes 4 % (0-10); Neutrophil 78 % (42-75); Platelet Adequacy Comment Platelets Normal; Polychromasia SLIGHT = 2-3 cells HPF (0-2); Smudge Cells 6.9 %; Total Cell Count 102
[2023-11-06] MEDS ORDERED: Lactated Ringer's 1,000 ML IV SCH (08:30)
[2023-11-06] MEDS: Lactated Ringer's 1,000 ML IV SCH ×2 (11:20→20:34)
[2023-11-06] MEDS: Enoxaparin 40 MG (0.4 mL) SYRINGE SC SCH (11:21)
[2023-11-06] MEDS: Melatonin 3 MG TAB PO SCH (20:33)
[2023-11-06] MEDS: Acetaminophen/Codeine 30-300mg Tablet PO PRN (22:44)
[2023-11-07 00:24] LABS: Bacteria/HPF None Seen HPF (None Seen); Bilirubin Negative (Negative); Blood, Urine Negative (Negative); CAUTI Indications for Culture Alt mental st,lethar; Clarity Clear (Clear); Glucose, Urine (Dipstick) Normal (Negative); Ketone, Urine 100 mg/dL (Negative); Leukocyte Negative Leu/uL (Negative); Nitrite Negative (Negative); Protein, Urine (Dipstick) 10 mg/dL (Neg-Trace); RBC/HPF 0-3 HPF (0-3); Specific Gravity, Urine 1.024 (1.002-1.036); Squamous Epithelial 0-3 HPF (0-3); WBC/HPF 0-3 HPF (0-3); pH, Urine 5.5 (5.0-9.0)
[2023-11-07 00:28] LABS: Urine Culture Reflex No No
[2023-11-07] MEDS: Pantoprazole 80 MG, Admixture Fee 1 EACH in Sodium Chloride 0.9% 100 ML IVPB SCH (00:57)
[2023-11-07 05:26] LABS: #Basophils 0.1 thou/uL (0.0-0.2); #Eosinphils 0.4 thou/uL (0.0-0.7); #Monocytes 1.4 thou/uL (0.11-0.59); #Neutrophils 7.5 thou/uL (1.40-6.50); %Basophils 0.4 % (0.0-1.0); %Eosinophils 3.1 % (0.0-10.0); %Lymphocytes 22.2 % (21.0-51.0); %Monocytes 11.5 % (0.0-10.0); %Neutrophils 62.3 % (42.0-75.0); Hematocrit 33.5 % (42.0-52.0); Hemoglobin 10.8 g/dL (14.0-18.0); Mean Corpuscular HGB CONC 32.2 g/dL (32.0-36.0); Mean Corpuscular Volume 99.1 fl (78.0-98.0); Platelet Count 223 10x3/uL (130-400); RBC Distribution Width 14.1 % (11.5-14.5); Red Blood Cell (RBC) Count 3.38 mill/uL (4.70-6.10); White Blood Cell (WBC) Count 12.1 10x3/uL (4.8-10.8)
[2023-11-07] MEDS: Lactated Ringer's 1,000 ML IV SCH (05:58)
[2023-11-07 05:59] LABS: Anion Gap 14 mmol/L (10-20); BUN (Urea Nitrogen) 20 mg/dL (8.4-25.7); CK (CPK) 344 U/L (30-200); Calc. Creatinine Clearance 71 mL/min (70-130); Calcium 8.3 mg/dL (7.8-10.44); Carbon Dioxide 23 mmol/L (23-31); Chloride 108 mmol/L (98-107); Estimated GFR 85; Glucose 77 mg/dL (83-110); Potassium 3.7 mmol/L (3.5-5.1); Sodium 141 mmol/L (136-145)
[2023-11-07] MEDS: Amlodipine 5 MG TAB PO SCH (08:27)
[2023-11-07] MEDS: Pantoprazole 40 MG VIAL IVP SCH ×2 (08:29→20:06)
[2023-11-07] MEDS: Melatonin 3 MG TAB PO SCH (20:06)
[2023-11-08] MEDS: Acetaminophen/Codeine 30-300mg Tablet PO PRN ×2 (00:13→21:46)
[2023-11-08 05:03] LABS: #Basophils 0.1 thou/uL (0.0-0.2); #Eosinphils 0.6 thou/uL (0.0-0.7); #Neutrophils 7.2 thou/uL (1.40-6.50); %Basophils 0.4 % (0.0-1.0); %Eosinophils 5.1 % (0.0-10.0); %Lymphocytes 19.6 % (21.0-51.0); %Monocytes 15.9 % (0.0-10.0); %Neutrophils 58.1 % (42.0-75.0); Hematocrit 37.6 % (42.0-52.0); Hemoglobin 12.3 g/dL (14.0-18.0); Mean Corpuscular HGB CONC 32.7 g/dL (32.0-36.0); Mean Corpuscular Hemoglobin 32.3 pg (27.0-31.0); Mean Corpuscular Volume 98.7 fl (78.0-98.0); Mean Platelet Volume 12.8 fL (7.4-10.4); Platelet Count 219 10x3/uL (130-400); RBC Distribution Width 13.9 % (11.5-14.5); Red Blood Cell (RBC) Count 3.81 mill/uL (4.70-6.10); White Blood Cell (WBC) Count 12.4 10x3/uL (4.8-10.8)
[2023-11-08 05:34] LABS: Anion Gap 10 mmol/L (10-20); BUN (Urea Nitrogen) 13 mg/dL (8.4-25.7); Calc. Creatinine Clearance 73 mL/min (70-130); Calcium 8.4 mg/dL (7.8-10.44); Carbon Dioxide 25 mmol/L (23-31); Chloride 106 mmol/L (98-107); Estimated GFR 86; Glucose 120 mg/dL (83-110); Potassium 3.3 mmol/L (3.5-5.1); Sodium 138 mmol/L (136-145)
[2023-11-08] MEDS: Pantoprazole 40 MG VIAL IVP SCH (09:01)
[2023-11-08] MEDS: Amlodipine 5 MG TAB PO SCH (09:01)
[2023-11-08] MEDS: Melatonin 3 MG TAB PO SCH (19:52)
[2023-11-08] MEDS ORDERED: Enoxaparin 40 MG (0.4 mL) SYRINGE SC SCH (21:00)
[2023-11-09] MEDS: Acetaminophen/Codeine 30-300mg Tablet PO PRN (01:14)
[2023-11-09] MEDS: Amlodipine 5 MG TAB PO SCH (09:11)
[2023-11-09 10:56] VITALS: BP 130/79; TEMP 97.6
== END 2023-11-09 12:45 | disposition home or self-care (01) | DRG 543 ==
LOC: SURG B 14:12
PROVIDERS: ADMIT Student in an Organized Health Care Education/Training Program; ATTEND Student in an Organized Health Care Education/Training Program
DX: M84.451A Pathological fracture, right femur, initial encounter for fracture (principal); K56.7 Ileus, unspecified; M62.82 Rhabdomyolysis; K92.0 Hematemesis; I10 Essential (primary) hypertension; E78.5 Hyperlipidemia, unspecified; E87.6 Hypokalemia; G20.A1 Parkinson's disease without dyskinesia, without mention of fluctuations; H40.9 Unspecified glaucoma; Z98.890 Other specified postprocedural states; Z99.3 Dependence on wheelchair; Z98.41 Cataract extraction status, right eye; Z98.42 Cataract extraction status, left eye; Z90.49 Acquired absence of other specified parts of digestive tract; Z79.899 Other long term (current) drug therapy; Z79.82 Long term (current) use of aspirin
CPT/HCPCS: 36415; 71045; 74018; 74022; 80048; 80053; 81001; 82550; 85025; 87040; C9113; J1650; J3490; J7050; J7120

== ENCOUNTER 2025-05-01 22:08 | Inpatient (IN) | payer MEDICARE, MEDICAID ==
[2025-05-02 01:08] VITALS: BMI 24.5
[2025-05-02] MEDS: cefTRIAXone\\ROCEPHIN 1 GM in Sodium Chloride 0.9% 100 ML IVPB SCH (02:36)
[2025-05-02 04:47] LABS: Troponin I 0.067 ng/mL (< 0.028)
[2025-05-02 04:48] LABS: ALT (SGPT) 8 U/L (Less than 45); AST (SGOT) 22 U/L (11-34); Albumin 3.4 g/dL (3.1-4.5); Alkaline Phosphatase 84 U/L (40-110); Anion Gap 11 mmol/L (10-20); BUN (Urea Nitrogen) 18 mg/dL (8.4-25.7); Bilirubin, Total 0.8 mg/dL (0.3-1.2); CK (CPK) 148 U/L (30-200); Calc. Creatinine Clearance 47 mL/min (70-130); Calcium 8.3 mg/dL (7.8-10.44); Carbon Dioxide 22 mmol/L (23-31); Chloride 111 mmol/L (98-107); Globulin 3.2 g/dL (2.4-3.5); Glucose 90 mg/dL (83-110); Magnesium 1.8 mg/dL (1.6-2.6); Potassium 3.6 mmol/L (3.5-5.1); Sodium 140 mmol/L (136-145)
[2025-05-02 04:51] LABS: Hematocrit 35.9 % (42.0-52.0); Hemoglobin 11.6 g/dL (14.0-18.0); Mean Corpuscular Hemoglobin 32.3 pg (27.0-31.0); Mean Corpuscular Volume 100.0 fL (78.0-98.0); Platelet Count 165 10x3/uL (130-400); Red Blood Cell (RBC) Count 3.59 mill/uL (4.70-6.10); White Blood Cell (WBC) Count 20.37 10x3/uL (4.8-10.8)
[2025-05-02 05:57] LABS: Anisocytosis MODERATE=16-30 cells HPF (0-5); Burr Cells SLIGHT = 2-5 cells HPF (0-1); Macrocytosis MODERATE=16-30 cells HPF (0-5); Platelet Adequacy Comment Platelets Normal; Smudge Cells 14.0 %
[2025-05-02] MEDS: Enoxaparin 40 MG (0.4 mL) SYRINGE SC SCH (09:09)
[2025-05-02] MEDS ORDERED: EMOLLIENT TOP PRN (15:05)
[2025-05-02] MEDS ORDERED: Ondansetron PF 4 MG/2 ML Vial IVP PRN (15:05)
[2025-05-02] MEDS ORDERED: Acetaminophen 325 MG TAB PO PRN (15:05)
[2025-05-02] MEDS: Aspirin 81 mg Enteric Coated Tablet PO SCH (22:00)
[2025-05-02] MEDS: Brimonidine Tartrate 0.2% Ophth Soln 5 ml Bottle EA EYE SCH (22:01)
[2025-05-02] MEDS: Dorzolamide HCl 2% Ophth (10 mL) Bottle EA EYE SCH (22:01)
[2025-05-03 05:17] LABS: Hematocrit 37.5 % (42.0-52.0); Hemoglobin 12.1 g/dL (14.0-18.0); Mean Corpuscular Hemoglobin 32.1 pg (27.0-31.0); Mean Corpuscular Volume 99.5 fL (78.0-98.0); Platelet Count 165 10x3/uL (130-400); Red Blood Cell (RBC) Count 3.77 mill/uL (4.70-6.10); White Blood Cell (WBC) Count 10.49 10x3/uL (4.8-10.8)
[2025-05-03 05:30] LABS: Anion Gap 12 mmol/L (10-20); BUN (Urea Nitrogen) 19 mg/dL (8.4-25.7); Calc. Creatinine Clearance 46 mL/min (70-130); Calcium 8.5 mg/dL (7.8-10.44); Carbon Dioxide 23 mmol/L (23-31); Chloride 109 mmol/L (98-107); Glucose 87 mg/dL (83-110); Potassium 3.7 mmol/L (3.5-5.1); Sodium 140 mmol/L (136-145)
[2025-05-03 05:31] LABS: CRP,High Sensitivity (Inhouse) 7.26 mg/dL (< or = 0.5)
[2025-05-03 06:14] LABS: Nucleated RBC (Manual Ct) 1 % (0); Platelet Adequacy Comment Platelets Normal; RBC Morphology Within Normal Limits; Smudge Cells 13.0 %
[2025-05-03] MEDS: Pantoprazole 40 MG DR.TAB PO SCH (09:32)
[2025-05-03] MEDS: Furosemide 20 MG TAB PO SCH (09:32)
[2025-05-03] MEDS: Ferrous Sulfate 325 MG TAB PO SCH (09:32)
[2025-05-03 14:41] VITALS: BMI 24.5
[2025-05-03] MEDS: Metoprolol Succinate XL 25 MG ER.TAB PO SCH (16:10)
[2025-05-03] MEDS: Magnesium 2 GM/50 ML(in water) 2 GM in Premix 1 BAG IVPB SCH (16:10)
[2025-05-04 05:05] LABS: Anion Gap 14 mmol/L (10-20); BUN (Urea Nitrogen) 19 mg/dL (8.4-25.7); Calc. Creatinine Clearance 43 mL/min (70-130); Calcium 8.6 mg/dL (7.8-10.44); Carbon Dioxide 23 mmol/L (23-31); Chloride 106 mmol/L (98-107); Glucose 94 mg/dL (83-110); Magnesium 2.3 mg/dL (1.6-2.6); Potassium 3.7 mmol/L (3.5-5.1); Sodium 139 mmol/L (136-145)
[2025-05-04 05:28] LABS: Mean Corpuscular Volume 99.0 fL (78.0-98.0)
[2025-05-04 05:29] LABS: #Basophils 0.07 10x3/uL (0.0-0.2); #Eosinophils 0.54 10x3/uL (0.0-0.7); #Monocytes 0.99 10x3/uL (0.11-0.59); #Neutrophils 3.64 10x3/uL (1.40-6.50); %Basophils 0.9 % (0.0-1.0); %Eosinophils 7.2 % (0.0-10.0); %Lymphocytes 29.6 % (21.0-51.0); %Monocytes 13.2 % (0.0-10.0); %Neutrophils 48.6 % (42.0-75.0); Hematocrit 39.6 % (42.0-52.0); Hemoglobin 12.8 g/dL (14.0-18.0); Mean Corpuscular Hemoglobin 32.0 pg (27.0-31.0); Platelet Count 181 10x3/uL (130-400); Red Blood Cell (RBC) Count 4.00 mill/uL (4.70-6.10); White Blood Cell (WBC) Count 7.50 10x3/uL (4.8-10.8)
[2025-05-04] MEDS: Metoprolol Succinate XL 25 MG ER.TAB PO SCH (08:14)
[2025-05-04 15:16] VITALS: BP 141/87; TEMP 97.8
== END 2025-05-04 18:25 | disposition home health service (06) | DRG 872 ==
LOC: 2NO 05-02 00:22
PROVIDERS: ADMIT Internal Medicine; ATTEND Family Medicine
DX: A41.9 Sepsis, unspecified organism (principal); N17.9 Acute kidney failure, unspecified; I10 Essential (primary) hypertension; H40.9 Unspecified glaucoma; Z90.49 Acquired absence of other specified parts of digestive tract; Z79.82 Long term (current) use of aspirin; Z79.899 Other long term (current) drug therapy; E86.0 Dehydration; E86.9 Volume depletion, unspecified; Z99.3 Dependence on wheelchair
CPT/HCPCS: 36415; 80048; 80053; 82533; 82550; 83605; 83735; 84439; 84484; 85025; 86141; 87040; 93005; 93010; 93306; J0696; J1650; J3475; J7030

== ENCOUNTER 2025-06-16 19:15 | Inpatient (IN) | payer MEDICARE, MEDICAID ==
[~2025-06-16 19:15] MED LIST: Iopamidol-370 76% 500 ML MDV (1 ML CHARGE) ONE
[2025-06-16] MEDS ORDERED: Cefepime 2 GM VIAL ONE (19:45)
[2025-06-16 20:22] LABS: Hematocrit 42.0 % (42.0-52.0); Hemoglobin 13.1 g/dL (14.0-18.0); Mean Corpuscular Hemoglobin 31.5 pg (27.0-31.0); Mean Corpuscular Volume 101.0 fL (78.0-98.0); Platelet Count 195 10x3/uL (130-400); Red Blood Cell (RBC) Count 4.16 mill/uL (4.70-6.10); White Blood Cell (WBC) Count 11.88 10x3/uL (4.8-10.8)
[2025-06-16 20:36] LABS: ALT (SGPT) Less than 7 U/L (Less than 45); AST (SGOT) 20 U/L (11-34); Albumin 3.7 g/dL (3.1-4.5); Alkaline Phosphatase 100 U/L (40-110); Anion Gap 17 mmol/L (10-20); BUN (Urea Nitrogen) 24 mg/dL (8.4-25.7); Bilirubin, Total 1.3 mg/dL (0.3-1.2); Calc. Creatinine Clearance 0 mL/min (70-130); Calcium 9.1 mg/dL (7.8-10.44); Carbon Dioxide 22 mmol/L (23-31); Chloride 109 mmol/L (98-107); Globulin 3.1 g/dL (2.4-3.5); Glucose 95 mg/dL (83-110); Lipase 15 U/L (8-78); Potassium 3.9 mmol/L (3.5-5.1); Sodium 144 mmol/L (136-145)
[2025-06-16 20:45] LABS: Burr Cells MODERATE= 6-15 cells HPF (0-1); Macrocytosis SLIGHT = 6-15 cells HPF (0-5); Platelet Adequacy Comment Platelets Normal; Polychromasia SLIGHT = 2-3 cells HPF (0-2); Smudge Cells 16.3 %
[2025-06-16] MEDS ORDERED: VANCOMYCIN 2 GRAM/400 ML BAG ONE (20:52)
[2025-06-16] MEDS: VANCOMYCIN 2 GRAM/400 ML Premix BAG IVPB SCH (21:00)
[2025-06-16] MEDS ORDERED: hydrALAZINE 20 MG/ML VIAL SLOW IVP PRN (22:07)
[2025-06-16 23:38] VITALS: BMI 24.8
[2025-06-17 06:24] LABS: Hematocrit 39.5 % (42.0-52.0); Hemoglobin 12.3 g/dL (14.0-18.0); Mean Corpuscular Hemoglobin 31.3 pg (27.0-31.0); Mean Corpuscular Volume 100.5 fL (78.0-98.0); Platelet Count 188 10x3/uL (130-400); Red Blood Cell (RBC) Count 3.93 mill/uL (4.70-6.10); White Blood Cell (WBC) Count 13.02 10x3/uL (4.8-10.8)
[2025-06-17 06:25] LABS: Anion Gap 11 mmol/L (10-20); BUN (Urea Nitrogen) 18 mg/dL (8.4-25.7); Calc. Creatinine Clearance 63 mL/min (70-130); Calcium 8.5 mg/dL (7.8-10.44); Carbon Dioxide 21 mmol/L (23-31); Chloride 114 mmol/L (98-107); Glucose 87 mg/dL (83-110); Potassium 3.7 mmol/L (3.5-5.1); Sodium 142 mmol/L (136-145)
[2025-06-17 06:39] LABS: Free T4 (Free Thyroxine) 0.97 ng/dL (0.70-1.48)
[2025-06-17 07:02] LABS: Burr Cells SLIGHT = 2-5 cells HPF (0-1); Macrocytosis SLIGHT = 6-15 cells HPF (0-5); Platelet Adequacy Comment Platelets Normal; Poikilocytosis SLIGHT = 6-15 cells HPF (0-5); Polychromasia SLIGHT = 2-3 cells HPF (0-2); Smudge Cells 8.7 %
[2025-06-17] MEDS: Dorzolamide HCl 2% Ophth (10 mL) Bottle EA EYE SCH (09:22)
[2025-06-17] MEDS: Furosemide 20 MG TAB PO SCH (09:22)
[2025-06-17] MEDS: Aspirin 81 mg Enteric Coated Tablet PO SCH (09:22)
[2025-06-17] MEDS: Brimonidine Tartrate 0.2% Ophth Soln 5 ml Bottle EA EYE SCH (09:22)
[2025-06-17] MEDS: diphenhydrAMINE 25 MG CAP PO PRN (14:50)
[2025-06-18 05:54] LABS: Hematocrit 42.3 % (42.0-52.0); Hemoglobin 13.5 g/dL (14.0-18.0); Mean Corpuscular Hemoglobin 31.4 pg (27.0-31.0); Mean Corpuscular Volume 98.4 fL (78.0-98.0); Platelet Count 202 10x3/uL (130-400); Red Blood Cell (RBC) Count 4.30 mill/uL (4.70-6.10); White Blood Cell (WBC) Count 9.49 10x3/uL (4.8-10.8)
[2025-06-18 06:02] LABS: Anion Gap 11 mmol/L (10-20); BUN (Urea Nitrogen) 14 mg/dL (8.4-25.7); CRP, High Sensitivity at Bryan 0.30 mg/dL (< or = 0.5); Calc. Creatinine Clearance 65 mL/min (70-130); Calcium 8.9 mg/dL (7.8-10.44); Carbon Dioxide 24 mmol/L (23-31); Chloride 110 mmol/L (98-107); Glucose 94 mg/dL (83-110); Potassium 3.7 mmol/L (3.5-5.1); Sodium 141 mmol/L (136-145)
[2025-06-18 06:37] LABS: Platelet Adequacy Comment Platelets Normal; RBC Morphology Within Normal Limits; Smudge Cells 5.0 %
[2025-06-19 05:33] LABS: Hematocrit 43.0 % (42.0-52.0); Hemoglobin 13.7 g/dL (14.0-18.0); Mean Corpuscular Hemoglobin 31.7 pg (27.0-31.0); Mean Corpuscular Volume 99.5 fL (78.0-98.0); Platelet Count 196 10x3/uL (130-400); Red Blood Cell (RBC) Count 4.32 mill/uL (4.70-6.10); White Blood Cell (WBC) Count 10.54 10x3/uL (4.8-10.8)
[2025-06-19 05:57] LABS: Nucleated RBC (Manual Ct) 1 % (0); Platelet Adequacy Comment Platelets Normal; Polychromasia SLIGHT = 2-3 cells HPF (0-2)
[2025-06-19 05:58] LABS: Anion Gap 14 mmol/L (10-20); BUN (Urea Nitrogen) 19 mg/dL (8.4-25.7); Calc. Creatinine Clearance 51 mL/min (70-130); Calcium 8.8 mg/dL (7.8-10.44); Carbon Dioxide 22 mmol/L (23-31); Chloride 110 mmol/L (98-107); Glucose 93 mg/dL (83-110); Potassium 3.5 mmol/L (3.5-5.1); Sodium 142 mmol/L (136-145)
[2025-06-19] MEDS: cefTRIAXone\\ROCEPHIN 1 GM in Sodium Chloride 0.9% 100 ML IVPB SCH (17:42)
[2025-06-19] MEDS: Ondansetron PF 4 MG/2 ML Vial IVP PRN (21:18)
[2025-06-20] MEDS: Mag-Al Plus 1200/1200/120 MG (30 mL) UDCUP PO PRN (02:45)
[2025-06-20 05:55] LABS: Hematocrit 48.7 % (42.0-52.0); Hemoglobin 15.8 g/dL (14.0-18.0); Mean Corpuscular Hemoglobin 31.7 pg (27.0-31.0); Mean Corpuscular Volume 97.8 fL (78.0-98.0); Platelet Count 232 10x3/uL (130-400); Red Blood Cell (RBC) Count 4.98 mill/uL (4.70-6.10); White Blood Cell (WBC) Count 13.91 10x3/uL (4.8-10.8)
[2025-06-20 06:03] LABS: Anion Gap 17 mmol/L (10-20); BUN (Urea Nitrogen) 23 mg/dL (8.4-25.7); Calc. Creatinine Clearance 49 mL/min (70-130); Calcium 9.1 mg/dL (7.8-10.44); Carbon Dioxide 22 mmol/L (23-31); Chloride 106 mmol/L (98-107); Glucose 107 mg/dL (83-110); Potassium 3.9 mmol/L (3.5-5.1); Sodium 141 mmol/L (136-145)
[2025-06-20 06:37] LABS: Platelet Adequacy Comment Platelets Normal; RBC Morphology Within Normal Limits; Smudge Cells 24.2 %
[2025-06-20] MEDS: Pantoprazole 40 MG VIAL IVP SCH ×2 (10:53→21:29)
[2025-06-20] MEDS: D5 1/2 NS w/10 mEq KCl 1,000 ML/1,000 ML BAG IV SCH (14:17)
[2025-06-21 06:20] LABS: Hematocrit 44.6 % (42.0-52.0); Hemoglobin 13.7 g/dL (14.0-18.0); Mean Corpuscular Hemoglobin 31.4 pg (27.0-31.0); Mean Corpuscular Volume 102.1 fL (78.0-98.0); Platelet Count 177 10x3/uL (130-400); Red Blood Cell (RBC) Count 4.37 mill/uL (4.70-6.10); White Blood Cell (WBC) Count 12.60 10x3/uL (4.8-10.8)
[2025-06-21 06:39] LABS: Macrocytosis SLIGHT = 6-15 cells HPF (0-5); Platelet Adequacy Comment Platelets Normal; Polychromasia SLIGHT = 2-3 cells HPF (0-2)
[2025-06-21 07:43] LABS: Anion Gap 16 mmol/L (10-20); BUN (Urea Nitrogen) 27 mg/dL (8.4-25.7); Calc. Creatinine Clearance 50 mL/min (70-130); Calcium 8.6 mg/dL (7.8-10.44); Carbon Dioxide 23 mmol/L (23-31); Chloride 105 mmol/L (98-107); Glucose 102 mg/dL (83-110); Potassium 4.1 mmol/L (3.5-5.1); Sodium 140 mmol/L (136-145)
[2025-06-21] MEDS: Vancomycin 1.5 GM / NS 500ML VIAL-2-BAG IVPB SCH (08:54)
[2025-06-21] MEDS ORDERED: Vancomycin 1 GM in Premix 1 BAG IVPB SCH (09:00)
[2025-06-22] MEDS: Acetaminophen 325 MG TAB PO PRN (00:58)
[2025-06-22 06:19] LABS: Hematocrit 39.4 % (42.0-52.0); Hemoglobin 12.3 g/dL (14.0-18.0); Mean Corpuscular Hemoglobin 31.5 pg (27.0-31.0); Mean Corpuscular Volume 101.0 fL (78.0-98.0); Platelet Count 170 10x3/uL (130-400); Red Blood Cell (RBC) Count 3.90 mill/uL (4.70-6.10); White Blood Cell (WBC) Count 10.87 10x3/uL (4.8-10.8)
[2025-06-22 06:21] LABS: Vancomycin, Random 11.0 ug/mL (See Comment)
[2025-06-22 06:23] LABS: Anion Gap 13 mmol/L (10-20); BUN (Urea Nitrogen) 17 mg/dL (8.4-25.7); Calc. Creatinine Clearance 56 mL/min (70-130); Calcium 8.2 mg/dL (7.8-10.44); Carbon Dioxide 22 mmol/L (23-31); Chloride 108 mmol/L (98-107); Glucose 108 mg/dL (83-110); Potassium 4.3 mmol/L (3.5-5.1); Sodium 139 mmol/L (136-145)
[2025-06-22 06:56] LABS: Macrocytosis SLIGHT = 6-15 cells HPF (0-5); Platelet Adequacy Comment Platelets Normal; Smudge Cells 18.0 %
[2025-06-22] MEDS: Vancomycin 1.25 GM / NS 250 ML VIAL-2-BAG IVPB SCH (08:47)
[2025-06-23 06:21] LABS: Calc. Creatinine Clearance 50.0 mL/min (70-130)
[2025-06-23] MEDS: Vancomycin 1 GM Premix Bag IVPB SCH (08:25)
[2025-06-23 11:30] VITALS: BMI 24.8
[2025-06-24 05:50] LABS: Anion Gap 15 mmol/L (10-20); BUN (Urea Nitrogen) 15 mg/dL (8.4-25.7); CRP, High Sensitivity at Bryan 1.14 mg/dL (< or = 0.5); Calc. Creatinine Clearance 50 mL/min (70-130); Calcium 8.8 mg/dL (7.8-10.44); Carbon Dioxide 24 mmol/L (23-31); Chloride 104 mmol/L (98-107); Glucose 98 mg/dL (83-110); Potassium 3.9 mmol/L (3.5-5.1); Sodium 139 mmol/L (136-145); Vancomycin, Random 19.0 ug/mL (See Comment)
[2025-06-24 05:59] LABS: Hematocrit 41.5 % (42.0-52.0); Hemoglobin 12.9 g/dL (14.0-18.0); Mean Corpuscular Hemoglobin 30.5 pg (27.0-31.0); Mean Corpuscular Volume 98.1 fL (78.0-98.0); Platelet Count 224 10x3/uL (130-400); Red Blood Cell (RBC) Count 4.23 mill/uL (4.70-6.10); White Blood Cell (WBC) Count 13.41 10x3/uL (4.8-10.8)
[2025-06-24 06:17] LABS: Platelet Adequacy Comment Platelets Normal; RBC Morphology Within Normal Limits; Smudge Cells 17.8 %
[2025-06-25 06:38] LABS: Hematocrit 37.2 % (42.0-52.0); Hemoglobin 12.1 g/dL (14.0-18.0); Mean Corpuscular Hemoglobin 31.4 pg (27.0-31.0); Mean Corpuscular Volume 96.6 fL (78.0-98.0); Platelet Count 224 10x3/uL (130-400); Red Blood Cell (RBC) Count 3.85 mill/uL (4.70-6.10); White Blood Cell (WBC) Count 13.72 10x3/uL (4.8-10.8)
[2025-06-25 06:46] LABS: Anion Gap 17 mmol/L (10-20); BUN (Urea Nitrogen) 17 mg/dL (8.4-25.7); Calc. Creatinine Clearance 44 mL/min (70-130); Calcium 8.8 mg/dL (7.8-10.44); Carbon Dioxide 24 mmol/L (23-31); Chloride 104 mmol/L (98-107); Glucose 87 mg/dL (83-110); Potassium 3.8 mmol/L (3.5-5.1); Sodium 141 mmol/L (136-145)
[2025-06-25 06:47] LABS: CRP, High Sensitivity at Bryan 1.44 mg/dL (< or = 0.5)
[2025-06-25 08:02] LABS: Anisocytosis MODERATE=16-30 cells HPF (0-5); Burr Cells SLIGHT = 2-5 cells HPF (0-1); Macrocytosis SLIGHT = 6-15 cells HPF (0-5); Platelet Adequacy Comment Platelets Normal; Polychromasia SLIGHT = 2-3 cells HPF (0-2); Smudge Cells 17.8 %
[2025-06-25] MEDS: Vancomycin HCl 750 MG in Sodium Chloride 0.9% 250 ML 250 ML IVPB SCH (08:23)
[2025-06-25] MEDS: Cephalexin 250 MG CAP PO SCH (17:45)
[2025-06-26 07:34] LABS: Hematocrit 41.2 % (42.0-52.0); Hemoglobin 12.5 g/dL (14.0-18.0); Mean Corpuscular Hemoglobin 31.8 pg (27.0-31.0); Mean Corpuscular Volume 104.8 fL (78.0-98.0); Platelet Count 124 10x3/uL (130-400); Red Blood Cell (RBC) Count 3.93 mill/uL (4.70-6.10); White Blood Cell (WBC) Count 13.36 10x3/uL (4.8-10.8)
[2025-06-26 08:06] LABS: Anisocytosis SLIGHT = 6-15 cells HPF (0-5); Burr Cells MARKED = >16 cells HPF (0-1); Macrocytosis SLIGHT = 6-15 cells HPF (0-5); Ovalocytes SLIGHT = 2-5 cells HPF (0-1); Platelet Adequacy Comment Platelets Normal; Poikilocytosis MARKED = >30 cells HPF (0-5); Polychromasia SLIGHT = 2-3 cells HPF (0-2)
[2025-06-27 06:12] LABS: Hematocrit 37.2 % (42.0-52.0); Hemoglobin 11.6 g/dL (14.0-18.0); Mean Corpuscular Hemoglobin 31.5 pg (27.0-31.0); Mean Corpuscular Volume 101.1 fL (78.0-98.0); Platelet Count 221 10x3/uL (130-400); Red Blood Cell (RBC) Count 3.68 mill/uL (4.70-6.10); White Blood Cell (WBC) Count 12.90 10x3/uL (4.8-10.8)
[2025-06-27 06:28] LABS: Anion Gap 13 mmol/L (10-20); BUN (Urea Nitrogen) 23 mg/dL (8.4-25.7); Calc. Creatinine Clearance 48 mL/min (70-130); Calcium 8.8 mg/dL (7.8-10.44); Carbon Dioxide 26 mmol/L (23-31); Chloride 106 mmol/L (98-107); Glucose 119 mg/dL (83-110); Potassium 3.5 mmol/L (3.5-5.1); Sodium 141 mmol/L (136-145)
[2025-06-27 06:59] LABS: Macrocytosis SLIGHT = 6-15 cells HPF (0-5); Platelet Adequacy Comment Platelets Normal; Poikilocytosis SLIGHT = 6-15 cells HPF (0-5); Polychromasia SLIGHT = 2-3 cells HPF (0-2); Smudge Cells 7.9 %
[2025-06-27] MEDS: Pantoprazole 40 MG DR.TAB PO SCH (09:47)
[2025-06-28 06:10] LABS: Hematocrit 39.8 % (42.0-52.0); Hemoglobin 12.2 g/dL (14.0-18.0); Mean Corpuscular Hemoglobin 31.6 pg (27.0-31.0); Mean Corpuscular Volume 103.1 fL (78.0-98.0); Platelet Count 165 10x3/uL (130-400); Red Blood Cell (RBC) Count 3.86 mill/uL (4.70-6.10); White Blood Cell (WBC) Count 11.57 10x3/uL (4.8-10.8)
[2025-06-28 06:30] LABS: Anion Gap 15 mmol/L (10-20); BUN (Urea Nitrogen) 22 mg/dL (8.4-25.7); Calc. Creatinine Clearance 52 mL/min (70-130); Calcium 8.9 mg/dL (7.8-10.44); Carbon Dioxide 24 mmol/L (23-31); Chloride 107 mmol/L (98-107); Glucose 98 mg/dL (83-110); Potassium 3.8 mmol/L (3.5-5.1); Sodium 142 mmol/L (136-145)
[2025-06-28 07:17] LABS: Platelet Adequacy Comment Platelets Normal; RBC Morphology Within Normal Limits; Smudge Cells 11.7 %
[2025-06-28 14:20] VITALS: BP 142/82; TEMP 97.7
== END 2025-06-28 18:36 | disposition home or self-care (01) | DRG 602 ==
LOC: ERS 19:15 → T4-A 21:35
PROVIDERS: ADMIT Student in an Organized Health Care Education/Training Program; ATTEND Hospitalist
DX: L03.114 Cellulitis of left upper limb (principal); R53.2 Functional quadriplegia; Z98.890 Other specified postprocedural states; F03.90 Unspecified dementia, unspecified severity, without behavioral disturbance, psychotic disturbance, mood disturbance, and anxiety; H54.8 Legal blindness, as defined in USA; Z98.41 Cataract extraction status, right eye; Z98.42 Cataract extraction status, left eye; Z90.49 Acquired absence of other specified parts of digestive tract; E03.9 Hypothyroidism, unspecified; R53.81 Other malaise; I11.9 Hypertensive heart disease without heart failure; Z79.82 Long term (current) use of aspirin; Z79.899 Other long term (current) drug therapy; Z79.890 Hormone replacement therapy
CPT/HCPCS: 36415; 36416; 71045; 74018; 74177; 80048; 80202; 82274; 82565; 83605; 83690; 83880; 84145; 84439; 84481; 85025; 86141; 87040; 93005; 96365; 96367; 97139; J0692; J0696; J2470; J3373; J3375; J3480; J7030; J7050; Q9967